=== PATIENT | female | born 1970 | race African-American/Black ===

== ENCOUNTER 2019-02-20 09:30 | Emergency (ER) | payer SELFPAY ==
[2019-02-20] MEDS ORDERED: Morphine 4 MG/ML VIAL ONE (09:41)
[2019-02-20] MEDS ORDERED: Ondansetron PF 4 MG/2 ML Vial ONE (09:41)
[2019-02-20 10:13] LABS: Hemoglobin 11.4 g/dL (12.0-16.0); Mean Corpuscular HGB CONC 31.6 g/dL (32.0-36.0); Mean Corpuscular Hemoglobin 28.1 pg (27.0-31.0); Mean Corpuscular Volume 89.1 fL (78.0-98.0); Mean Platelet Volume 8.1 fL (7.4-10.4); Platelet Count 383 thou/uL (130-400); RBC Distribution Width 14.3 % (11.5-14.5); Red Blood Cell (RBC) Count 4.07 mill/uL (4.20-5.40); White Blood Cell (WBC) Count 6.5 thou/uL (4.8-10.8)
[2019-02-20 10:17] LABS: BHCG - Serum Negative (NEGATIVE); Pregs Control Background? CLEAR/WHITE (CLR/WHITE); Pregs Control Bar Appear? YES (CONTROL BAR)
[2019-02-20 10:31] LABS: ALT (SGPT) 10 U/L (8-55); AST (SGOT) 15 U/L (5-34); Albumin 3.9 g/dL (3.5-5.0); Alkaline Phosphatase 52 U/L (40-150); Anion Gap 12 mmol/L (10-20); BUN (Urea Nitrogen) 6 mg/dL (7.0-18.7); Bilirubin, Total 0.3 mg/dL (0.2-1.2); CK (CPK) 78 U/L (29-168); Calc. Creatinine Clearance 0 mL/min (70-130); Calcium 9.5 mg/dL (7.8-10.44); Carbon Dioxide 21 mmol/L (22-29); Chloride 107 mmol/L (98-107); Estimated GFR-MDRD Greater than 90; Globulin 3.4 g/dL (2.4-3.5); Glucose 95 mg/dL (70-105); Lipase 6 U/L (8-78); Protein, Total 7.3 g/dL (6.0-8.3); Sodium 136 mmol/L (136-145)
[2019-02-20 10:44] LABS: Band 1 % (5-11); Eosinophils 8 % (0-10); Lymphocytes 61 % (21-51); MDiff Complete? YES; Monocytes 7 % (0-10); Neutrophil 23 % (42-75); Polychromasia SLIGHT = 2-3 cells (100X) (0-2/hpf)
--- NOTE | 2019-02-20 11:14 | CT ---
CT HEAD WITHOUT CONTRAST: Date: 02/20/19 Multiple axial tomograms obtained through the head without IV enhancement. INDICATION: Fall. COMPARISON: 01/08/08. FINDINGS: Ventricles have normal size and position. No evidence of intracranial hemorrhage or mass. Sinuses farheen w mild mucosal edema in the ethmoids. Sinuses are aerated. IMPRESSION: No acute process identified. POS: [facility]
--- NOTE | 2019-02-20 11:25 | RAD ---
AP CHEST: Date: 02/20/19 HISTORY: Fall. COMPARISON: 06/05/12. FINDINGS: Lungs appear clear. Deformity of the left lateral chest wall from old rib fractures appears stable fr om prior exam. The heart and mediastinum are unremarkable. IMPRESSION: Deformity of the left chest from old injury. No acute process identified. POS: [facility]
[2019-02-20 11:55] LABS: Bilirubin Negative (Negative); Blood, Urine Negative (Negative); Clarity Turbid (Clear); Glucose, Urine (Dipstick) Normal (Negative); Leukocyte 500 Leu/uL (Negative); Nitrite Negative (Negative); Protein, Urine (Dipstick) Negative (Neg-Trace); Urobilinogen Normal mg/dL (Less than 2)
--- NOTE | 2019-02-20 11:57 | RAD ---
LEFT HIP 3 VIEWS: Date: 02/20/19 INDICATION: History of mechanical fall out of bed, left hip pain. FINDINGS: There is a healed comminuted fracture involving the left obturator ring. There is a healed instrument ed proximal left femur fracture. There is a radiopaque density seen within the colon which may be rel ated to ingested bismuth products. No acute fracture or subluxation is evident. IMPRESSION: 1. Healed post-traumatic changes of the pelvis and proximal left femur. 2. No definite acute osseous abnormality. POS: [facility]
[2019-02-20 12:01] LABS: Medtox Reader # READER 4
--- NOTE | 2019-02-20 12:01 | RAD ---
LEFT FEMUR 2 VIEWS: Date: 02/20/19 INDICATION: Fall out of bed with left leg pain. COMPARISON: None. FINDINGS: There is a healed instrumented left proximal femur fracture. No acute fracture is evident. There is h ealed fracture deformity involving the left obturator ring. IMPRESSION: No acute osseous abnormality. POS: [facility]
--- NOTE | 2019-02-20 12:01 | RAD ---
LEFT ELBOW 4 VIEWS: Date: 02/20/19 INDICATION: Mechanical fall with left elbow pain. COMPARISON: None. IMPRESSION: No acute fracture or subluxation is evident. No joint capsular distention is noted. POS: [facility]
[2019-02-20 12:02] LABS: Amphetamine Not Detected (NotDetected); Barbiturates Screen Not Detected (NotDetected); Benzodiazepine Screen Not Detected (NotDetected); Cocaine Metabolite Screen Not Detected (NotDetected); Medtox Control Line Valid? VALID (VALID); Methadone Not Detected (NotDetected); Methamphetamine Not Detected (NotDetected); Opiate Screen Detected (NotDetected); Oxycodone Screen Not Detected (NotDetected); Phencyclidine (PCP) Not Detected (NotDetected); THC/Cannabinoid Screen Detected (NotDetected); Tricyclic Screen Not Detected (NotDetected)
[2019-02-20 12:03] LABS: Bacteria/HPF 1+ HPF (None Seen); RBC/HPF 0-3 HPF (0-3); Squamous Epithelial Greater than 50 HPF (0-3); Trichomonas/HPF 1+ HPF (None Seen)
--- NOTE | 2019-02-20 12:03 | RAD ---
LEFT SHOULDER 3 VIEWS: Date: 02/20/19 INDICATION: Mechanical fall out of bed with left shoulder pain. COMPARISON: None. FINDINGS: There is a healed fracture deformity involving the distal clavicle. No acute fracature or subluxation is grossly evident. There are numerous healed left-sided rib fractures. Visualized left lung is ann r. IMPRESSION: No acute osseous abnormality. POS: [facility]
[2019-02-20] MEDS ORDERED: levETIRAcetam 500 MG/100 ML PREMIX BAG ONE (12:22)
--- NOTE | 2019-02-20 13:02 | CT ---
CHEST AND ABDOMEN AND PELVIC CT SCAN WITH IV CONTRAST THORACIC SPINE CT SCAN WITH IV CONTRAST LIMITED LUMBAR SPINE CT SCAN WITH IV CONTRAST LIMITED: HISTORY: Injury following a mechanical fall out of bed with left arm and shoulder pain, seizures. FINDINGS: CHEST, ABDOMEN, AND PELVIC CT SCAN WITH IV CONTRAST: There is some increased thymus tissue within the anterior mediastinum extending from the region of th e manubrium of the sternum down to the level of the right ventricle. Comparison is made to a prior C T angiogram chest dated 01/08/2008. This thymus tissue may be slightly more prominent than on that st udy, although given that was 11 years ago this has probably not significantly changed. The aorta and great vessels appear unremarkable. No evidence for acute vascular injury. Numerous healed rib frac tures are noted on the left side. No pneumothorax or pleural effusion or pericardial effusion or oth er significant acute posttraumatic process. The liver, gallbladder, pancreas, and adrenal glands appear unremarkable. There appears to be prior splenectomy. No renal calculus or acute obstruction. No CT evidence for acute appendicitis. No free intraperitoneal fluid or evidence for retroperitoneal hematoma. Multiple intrauterine fibroids up to 2.6 cm in size. A 1.7 cm diameter slightly irregularly shaped cyst or confined fluid collectio n in the right labia, possibly a Bartholin's cyst. IMPRESSION: No significant acute posttraumatic process in the chest, abdomen, or pelvis. Abnormal increased thym ic tissue within the anterior mediastinum probably representing a thymoma with little overall change, possibly very slight increase in size from a prior 2007 study. Status post splenectomy. Multiple u terine fibroids. Right labial probable Bartholin's cyst. THORACIC CT SCAN WITH IV CONTRAST LIMITED: IMPRESSION: No fracture, dislocation, or other acute process. LUMBAR SPINE CT SCAN WITH IV CONTRAST LIMITED: No fracture, dislocation, or other significant acute process. POS: [facility]
--- NOTE | 2019-02-20 13:07 | CT ---
CERVICAL SPINE CT SCAN WITHOUT IV CONTRAST: Date: 02/20/19 HISTORY: Injury from a mechanical fall, seizures. FINDINGS: There are some generalized cervical spine disc osteophytosis and some facet arthrosis. No evidence fo r acute fracture or facet dislocation. There are some healed left rib fractures and probable healed r ight first rib fracture. IMPRESSION: No evidence for acute fracture or facet dislocation. Cervical spondylosis. POS: [facility]
--- NOTE | 2019-02-22 13:23 | EKG ---
Test Reason : SEIZURE Blood Pressure : / mmHG Vent. Rate : 055 BPM Atrial Rate : 055 BPM P-R Int : 236 ms QRS Dur : 078 ms QT Int : 440 ms P-R-T Axes : 044 036 041 degrees QTc Int : 420 ms Sinus bradycardia with 1st degree A-V block Otherwise normal ECG Confirmed by ENRIQUETA Weston, MISA ([id number]), non linear editor BRADLEY HILLMAN ([id number]) on 02/22/2019 1:23:24 PM Referred By: ENRIQUETA Confirmed By:MISA ROBISON M.D.
== END 2019-02-20 15:37 | disposition home or self-care (01) ==
LOC: ERS 09:30
DX: S22.32XA Fracture of one rib, left side, initial encounter for closed fracture (principal); E32.0 Persistent hyperplasia of thymus; D25.9 Leiomyoma of uterus, unspecified; R56.9 Unspecified convulsions; W06.XXXA Fall from bed, initial encounter
CPT/HCPCS: 36415; 70450; 71045; 71260; 72125; 74177; 80053; 80306; 81003; 81015; 82550; 83690; 84146; 84484; 84703; 85025; 93005; 96361; 96365; 96375; J1953; J2270; J2405

== ENCOUNTER 2019-12-22 08:46 | Outpatient (CLI) | payer OTHER ==
--- NOTE | 2019-12-22 08:59 | RAD ---
RADIOGRAPH LEFT LEG TIBIA FIBULA 2VIEWS: DATE: 12/22/2019 HISTORY: 49-year-old female with left leg pain FINDINGS: There is no evidence of fracture, periostitis, permeative lesion, osteolytic lesion, or osteoblastic lesion involving the tibia or fibula. No radiopaque foreign body, abnormal soft tissue calcification, or subcutaneous emphysema is identified. IMPRESSION: Negative
== END 2019-12-22 08:47 | disposition home or self-care (01) ==
LOC: RAD-FRANK 08:46
PROVIDERS: ATTEND Nurse Practitioner Family
DX: M79.605 Pain in left leg (principal)

== ENCOUNTER 2020-09-19 09:01 | Emergency (ER) | payer OTHER ==
[2020-09-19] MEDS ORDERED: Lidocaine Viscous Sol 2% 15 ml UD Cup ONE (09:39)
[2020-09-19] MEDS ORDERED: Lorazepam 2 MG/ML VIAL ONE (09:39)
[2020-09-19] MEDS ORDERED: Mag-Al 1200 mg/1200 mg/30 ML UDCUP ONE (09:39)
[2020-09-19 09:40] LABS: Hemoglobin 11.4 g/dL (12.0-16.0); Mean Corpuscular HGB CONC 32.5 g/dL (32.0-36.0); Mean Corpuscular Volume 86.4 fL (78.0-98.0); RBC Distribution Width 14.2 % (11.5-14.5); Red Blood Cell (RBC) Count 4.08 mill/uL (4.20-5.40)
--- NOTE | 2020-09-19 09:41 | RAD ---
XR Chest 1 View Portable HISTORY: Chest pain COMPARISON: 02/20/2019 FINDINGS: The heart size is normal. The lungs are well expanded without focal areas of consolidation, pneumothorax or pleural effusions. IMPRESSION: No radiographic evidence of acute cardiopulmonary process.
[2020-09-19 09:42] LABS: BHCG - Serum Negative (NEGATIVE); Pregs Control Bar Appear? YES (CONTROL BAR)
[2020-09-19 09:43] LABS: Pregs Control Background? CLEAR/WHITE (CLR/WHITE)
[2020-09-19 09:50] LABS: ALT (SGPT) 12 U/L (8-55); AST (SGOT) 16 U/L (5-34); Albumin 4.1 g/dL (3.5-5.0); Alkaline Phosphatase 63 U/L (40-110); Anion Gap 16 mmol/L (10-20); BUN (Urea Nitrogen) 7 mg/dL (7.0-18.7); Bilirubin, Total 0.3 mg/dL (0.2-1.2); CK (CPK) 120 U/L (29-168); Calc. Creatinine Clearance 0 mL/min (70-130); Calcium 9.5 mg/dL (7.8-10.44); Carbon Dioxide 15 mmol/L (22-29); Chloride 108 mmol/L (98-107); Globulin 4.2 g/dL (2.4-3.5); Glucose 93 mg/dL (70-105); Lipase 9 U/L (8-78); Potassium 4.1 mmol/L (3.5-5.1); Protein, Total 8.3 g/dL (6.0-8.3); Sodium 135 mmol/L (136-145)
[2020-09-19 09:56] LABS: Burr Cells SLIGHT = 2-5 cells (100X) (0-1/hpf); Hypersemented Neutrophil SLIGHT; Hypochromia SLIGHT = 6-15 cells (100X) (0-5/hpf); Large Platelets SLIGHT; Lymphocytes 44 % (21-51); MDiff Complete? YES; Mean Platelet Volume 7.7 fL (7.4-10.4); Monocytes 8 % (0-10); Neutrophil 41 % (42-75); Platelet Count 415 thou/uL (130-400); Platelet Morphology Comment Appears Increased; Reactive Lymphocytes 6 % (0-10); Target Cells SLIGHT = 2-5 cells (100X) (0-1/hpf); White Blood Cell (WBC) Count 9.7 thou/uL (4.8-10.8)
--- NOTE | 2020-09-19 12:34 | CT ---
CTA AORTIC DISSECTION PROTOCOL WITH IV CONTRAST AND 3D REFORMATTED IMAGING: Date: 09/19/2020 INDICATION: 50-year-old female with history of chest and abdominal pain with burning sensations travelling to the abdomen. COMPARISON: CT of chest/abdomen/pelvis dated 02/20/2019 and CTA of chest dated 01/08/2008. FINDINGS: No definite acute aortic stenosis, occlusion, or aneurysmal formation is evident. The celiac, SMA, re nal, COREY, and iliac bifurcations are widely patent. No central pulmonary embolus is evident. No suspicious pulmonary nodule is evident. There is stable healed rib deformity involving the left ch est wall. There is an enlarging soft tissue mass involving the anterior mediastinum measuring 3.7 x 3.3 x 9.2 c m extending from the thoracic inlet along the anterior and superior margin of the pericardium. There is no overt evidence to suggest local invasion. Findings are suspicious for an enlarging thymoma. The spleen is surgically absent. No definite acute abnormality is seen within the visualized abdomen. Unopacified large and small bowel appear within normal limits. No focal hepatic lesion is evident. T he pancreas and adrenal glands are normal appearing. The kidneys are normal appearing. No pathologica lly enlarged lymph nodes are evident. There is scattered degenerative and osteoarthritic change. IMPRESSION: 1. No acute aortic dissection, aneurysm or occlusion. 2. Enlarging anterior mediastinal soft tissue mass suspicious for an enlarging thymoma. POS:
== END 2020-09-19 13:30 | disposition home or self-care (01) ==
LOC: ERS 09:01
DX: R07.9 Chest pain, unspecified (principal); D49.89 Neoplasm of unspecified behavior of other specified sites
CPT/HCPCS: 36415; 71045; 71275; 74174; 80053; 82550; 83690; 84484; 84703; 85025; 93005; 96374; J2060

== ENCOUNTER 2020-10-07 10:30 | Inpatient (IN) | payer OTHER ==
[2020-10-07 12:04] LABS: Hemoglobin 10.8 g/dL (12.0-15.5); Mean Corpuscular HGB CONC 32.3 g/dL (32.0-36.0); Mean Corpuscular Hemoglobin 27.1 pg (27.0-33.0); Mean Corpuscular Volume 83.9 fl (81.6-98.3); Mean Platelet Volume 11.7 fl (7.4-10.4); Platelet Count 373 10x3/uL (150-450); RBC Distribution Width 15.6 % (11.5-14.5); Red Blood Cell (RBC) Count 3.98 10x6/uL (3.90-5.03); White Blood Cell (WBC) Count 8.4 10x3/uL (3.5-10.5)
[2020-10-07 12:20] LABS: Anion Gap 17 mmol/L (10-20); BUN (Urea Nitrogen) 12 mg/dL (7.0-18.7); Calc. Creatinine Clearance 0 mL/min (70-130); Calcium 9.3 mg/dL (7.8-10.44); Carbon Dioxide 19 mmol/L (22-29); Chloride 106 mmol/L (98-107); Glucose 74 mg/dL (70-105); Potassium 4.8 mmol/L (3.5-5.1); Sodium 137 mmol/L (136-145)
[2020-10-07 17:26] LABS: SARS-CoV-2 PCR by NAA Not Detected (NotDetected)
[2020-10-12] MEDS ORDERED: Lidocaine 1% PF 5 ML VIAL ONE (10:15)
[2020-10-12] MEDS ORDERED: Ondansetron PF 4 MG/2 ML Vial ONE (10:15)
[2020-10-12] MEDS ORDERED: Rocuronium Bromide 10 MG/ML (10ML VIAL) ONE (10:15)
[2020-10-12] MEDS ORDERED: PROPOFOL 200 MG/20 ML VIAL ONE (10:15)
[2020-10-12] MEDS ORDERED: Dexamethasone 20 MG/5 ML VIAL ONE (10:15)
[2020-10-12] MEDS ORDERED: Glycopyrrolate 0.2 MG/ML 5 ML SYRINGE ONE (10:15)
[2020-10-12] MEDS ORDERED: Dexamethasone 4 mg/ml Vial ONE (12:44)
[2020-10-12] MEDS ORDERED: EPINEPHrine 1 MG/ML AMP ONE (12:44)
[2020-10-12] MEDS ORDERED: Bupivacaine PF 0.5% 30 ML VIAL ONE (12:44)
[2020-10-12] MEDS ORDERED: Fentanyl 100 MCG/2 ML VIAL ONE ×4 (12:48→16:07)
[2020-10-12] MEDS ORDERED: Midazolam HCl 2 mg/2 ml Vial ONE (12:48)
[2020-10-12] MEDS ORDERED: Acetaminophen 325 MG TAB PO PRN (14:32)
[2020-10-12] MEDS ORDERED: Bisacodyl 10 MG SUPP PR PRN (14:32)
[2020-10-12] MEDS ORDERED: Bisacodyl 5 MG TAB PO PRN (14:32)
[2020-10-12] MEDS ORDERED: D5 1/2 NS w/20 mEq KCL 1,000 ML IV SCH (14:32)
[2020-10-12] MEDS ORDERED: Mag-Al 1200 mg/1200 mg/30 ML UDCUP PO PRN (14:32)
[2020-10-12] MEDS ORDERED: Fentanyl 100 MCG/2 ML VIAL SLOW IVP PRN (14:32)
[2020-10-12] MEDS ORDERED: Guaifenesin DM 100-10/5 ML UDCUP PO PRN (14:32)
--- NOTE | 2020-10-12 14:50 | OP ---
DATE OF PROCEDURE: 10/11/2020 PREOPERATIVE DIAGNOSIS: Thymic mass. POSTOPERATIVE DIAGNOSIS: Thymic mass. PROCEDURE PERFORMED: Mini-sternotomy with thymectomy. ANESTHESIA: General endotracheal. ESTIMATED BLOOD LOSS: Less than 100. DRAIN: A 10-Mal[place] Kali. SPECIMEN: Thymus. DESCRIPTION OF PROCEDURE: After consent was obtained, the patient was brought to the operating room and placed in supine position on the operating room table. Appropriate central line and monitors were placed and general endotracheal anesthesia was induced. Chest was prepped and draped in usual sterile fashion. Skin incision was made. The manubrium and sternum down to the first interspace were dissected free from surrounding tissues. Fer-sternotomy was performed and teed off to the right at the first interspace past the angle of Desmond. On spreading the sternum, there was an easily identifiable thymic mass. The thymus was removed in total from the mediastinum. Both electrocautery and sharp dissection were used to dissect it free. Multiple venous and lymphatic branches were clipped. After removal, hemostasis was ensured. Vancomycin paste was placed on the sternal edges. A 10-Mal[place] Kali drain was placed and connected to a bulb suction. The sternum was then reapproximated with #5 wire. Wounds were irrigated, closed in layers and Dermabond applied to skin. The patient was awakened, extubated, and transferred to the recovery room in stable condition. The thymic mass was sent for routine pathologic exam. Job ID: [id number]
[2020-10-12] MEDS ORDERED: HYDROmorphone 2 MG/ML VIAL ONE (15:31)
[2020-10-12] MEDS ORDERED: hydrALAZINE 20 MG/ML VIAL ONE (15:35)
--- NOTE | 2020-10-12 15:55 | RAD ---
Exam: Chest one view HISTORY:Status post open heart surgery Comparison: 09/19/2019 FINDINGS: Cardiac silhouette:Normal cardiac silhouette. There are sternotomy wires. Aorta: Unremarkable Pulmonary vessels: Normal Costophrenic angles: Clear LUNGS: Interstitial and alveolar opacities may represent atelectasis Pneumothorax: None Osseous abnormalities: Old right rib fracture IMPRESSION: Compatible with recent open heart surgery
[2020-10-12] MEDS ORDERED: hydrALAZINE 20 MG/ML VIAL SLOW IVP SCH (16:00)
[2020-10-12] MEDS: HYDROcodone/Acetaminophen 5/325 mg Tablet PO PRN (17:35)
[2020-10-12] MEDS ORDERED: Ketorolac Tromethamine 30 MG/ML VIAL IVP SCH (18:00)
[2020-10-12] MEDS: Fentanyl 100 MCG/2 ML VIAL SLOW IVP PRN ×2 (18:27→20:30)
[2020-10-12] MEDS: Ondansetron PF 4 MG/2 ML Vial IVP PRN (18:28)
[2020-10-12] MEDS: CEFAZOLIN 2 GM in Premix Bag 1 BAG IVPB SCH (20:50)
[2020-10-12] MEDS ORDERED: Famotidine/PF 20 mg/2ml Vial SLOW IVP SCH (21:00)
[2020-10-13] MEDS: CEFAZOLIN 2 GM in Premix Bag 1 BAG IVPB SCH ×2 (04:00→12:32)
[2020-10-13] MEDS: Fentanyl 100 MCG/2 ML VIAL SLOW IVP PRN (04:30)
[2020-10-13 05:28] LABS: #Lymphocytes 2.6 thou/uL (1.20-3.40); #Monocytes 0.6 thou/uL (0.11-0.59); #Neutrophils 8.3 thou/uL (1.40-6.50); %Eosinophils 0.1 % (0.0-10.0); %Lymphocytes 22.2 % (21.0-51.0); %Monocytes 5.3 % (0.0-10.0); %Neutrophils 72.3 % (42.0-75.0); Mean Corpuscular HGB CONC 31.6 g/dL (32.0-36.0); Mean Corpuscular Hemoglobin 28.2 pg (27.0-31.0); Mean Corpuscular Volume 89.5 fL (78.0-98.0); Mean Platelet Volume 7.9 fL (7.4-10.4); Platelet Count 463 thou/uL (130-400); RBC Distribution Width 14.2 % (11.5-14.5); White Blood Cell (WBC) Count 11.5 thou/uL (4.8-10.8)
[2020-10-13] MEDS: HYDROcodone/Acetaminophen 5/325 mg Tablet PO PRN ×4 (05:36→18:56)
[2020-10-13 06:30] VITALS: BMI 26.0
--- NOTE | 2020-10-13 08:03 | RAD ---
Chest AP view INDICATION: Chest pain; chest crepitus status post thymectomy COMPARISON: October 12, 2020 chest radiograph FINDINGS: Lungs: Scarring involving the left midlung is stable. No confluent airspace opacity is evident. Cardiac silhouette: Midline sternotomy changes are stable. Heart shadow appears within normal limits . Pulmonary vasculature: Normal Pleural spaces: No pleural effusion or pneumothorax is demonstrated. Upper abdomen: No abnormality seen. Osseous structures: Deformity involving the left lateral chest wall is stable. Deformity involving t he distal left clavicle is stable. Additional findings: None. IMPRESSION: Stable postoperative chest. No definite acute abnormality.
[2020-10-13 08:15] LABS: MDiff Complete? YES; Platelet Morphology Comment Appears Increased; Polychromasia SLIGHT = 2-3 cells (100X) (0-2/hpf)
[2020-10-14] MEDS: Fentanyl 100 MCG/2 ML VIAL SLOW IVP PRN ×2 (00:46→03:52)
[2020-10-14] MEDS: Ondansetron PF 4 MG/2 ML Vial IVP PRN (03:52)
[2020-10-14] MEDS: HYDROcodone/Acetaminophen 5/325 mg Tablet PO PRN ×5 (03:54→16:26)
[2020-10-14 18:58] VITALS: BP 143/87; TEMP 98.9
--- NOTE | 2020-10-15 10:00 | DIS ---
DATE OF ADMISSION: 10/12/2020 DATE OF DISCHARGE: 10/14/2020 DIAGNOSIS: Thymic mass. PROCEDURE: Hemisternotomy with resection of thymic mass. DESCRIPTION OF HOSPITAL STAY: Ms. Mosquera was brought in for an elective resection. She has done well postoperatively and had no issues. Her drain was removed this morning. She is currently ambulatory, tolerating a regular diet, having good bowel and bladder function. Incision is clean and dry. The hole from her drain has drained a little bit of clear fluid and she has been instructed to keep a dry dressing on this. I will see her back in the office in a week and discuss her pathology, which is currently still pending. DISCHARGE MEDICATIONS: Hydrocodone 5 mg one to two q.6 hours p.r.n. pain. Job ID: [id number]
== END 2020-10-14 17:50 | disposition home or self-care (01) | DRG 804 ==
LOC: SURG A 10-12 09:22 → 2NO 10-12 16:21
PROVIDERS: ADMIT Thoracic Surgery (Cardiothoracic Vascular Surgery); ATTEND Thoracic Surgery (Cardiothoracic Vascular Surgery)
PROC: 07BM0ZZ Excision of Thymus, Open Approach (ICD-10-PCS; principal; 2020-10-11)
DX: E32.8 Other diseases of thymus (principal); Z20.822 Contact with and (suspected) exposure to COVID-19; Z88.6 Allergy status to analgesic agent; Z88.8 Allergy status to other drugs, medicaments and biological substances
CPT/HCPCS: 36415; 36416; 71045; 80048; 85025; 85027; 86850; 86900; 86901; 87635; 88307; J0171; J0360; J0690; J1100; J1170; J2250; J2405; J2704; J3010; J3370; J3480; S0020; S0028; U0003; U0005

== ENCOUNTER 2021-03-26 08:00 | Emergency (ER) | payer OTHER ==
[2021-03-26] MEDS ORDERED: Morphine 4 MG/ML VIAL ONE (08:43)
[2021-03-26] MEDS ORDERED: Ketorolac Tromethamine 30 MG/ML VIAL ONE (08:44)
[2021-03-26 08:56] LABS: ALT (SGPT) 16 U/L (8-55); AST (SGOT) 19 U/L (5-34); Alkaline Phosphatase 75 U/L (40-110); Anion Gap 14 mmol/L (10-20); BUN (Urea Nitrogen) 9 mg/dL (7.0-18.7); Bilirubin, Total 0.2 mg/dL (0.2-1.2); Calc. Creatinine Clearance 0 mL/min (70-130); Carbon Dioxide 20 mmol/L (22-29); Chloride 108 mmol/L (98-107); Globulin 3.7 g/dL (2.4-3.5); Glucose 96 mg/dL (70-105); Potassium 3.9 mmol/L (3.5-5.1); Protein, Total 7.7 g/dL (6.0-8.3); Sodium 138 mmol/L (136-145)
[2021-03-26 09:51] LABS: Anisocytosis SLIGHT = 6-15 cells (100X) (0-5/hpf); Band 1 % (5-11); Crenated RBC SLIGHT = 1-5 cells (100X) (None Seen); Eosinophils 2 % (0-10); Hemoglobin 10.4 g/dL (12.0-16.0); Lymphocytes 60 % (21-51); MDiff Complete? YES; Mean Corpuscular HGB CONC 32.9 g/dL (32.0-36.0); Mean Corpuscular Hemoglobin 27.5 pg (27.0-31.0); Mean Corpuscular Volume 83.8 fL (78.0-98.0); Mean Platelet Volume 8.6 fL (7.4-10.4); Monocytes 5 % (0-10); Neutrophil 32 % (42-75); Platelet Count 502 thou/uL (130-400); Platelet Morphology Comment Appears Increased; Poikilocytosis SLIGHT = 6-15 cells (100X) (0-5/hpf); RBC Distribution Width 16.1 % (11.5-14.5); Red Blood Cell (RBC) Count 3.78 mill/uL (4.20-5.40); Target Cells SLIGHT = 2-5 cells (100X) (0-1/hpf); White Blood Cell (WBC) Count 5.8 thou/uL (4.8-10.8)
[2021-03-26] MEDS ORDERED: Iopamidol-370 76% 500 ML 1 ML ONE (10:52)
== END 2021-03-26 13:25 | disposition home or self-care (01) ==
LOC: ERS 08:00
DX: S22.31XA Fracture of one rib, right side, initial encounter for closed fracture (principal); X58.XXXA Exposure to other specified factors, initial encounter
CPT/HCPCS: 36415; 71045; 71275; 80053; 84484; 85025; 85379; 96374; 96375; J1885; J2270; Q9967

== ENCOUNTER 2021-06-24 16:54 | Emergency (ER) | payer OTHER ==
[2021-06-24] MEDS ORDERED: HYDROcodone/Acetaminophen 5/325 mg Tablet ONE (17:44)
== END 2021-06-24 18:00 | disposition home or self-care (01) ==
LOC: ERS 16:54
DX: M25.531 Pain in right wrist (principal)

== ENCOUNTER 2022-02-01 08:02 | Emergency (ER) | payer OTHER ==
[~2022-02-01 08:02] MED LIST: ISOVUE-370 76%-LOCM 1 ML ONE
[2022-02-01 09:35] LABS: ALT (SGPT) 9 U/L (8-55); AST (SGOT) 20 U/L (5-34); Albumin 4.1 g/dL (3.5-5.0); Alkaline Phosphatase 62 U/L (40-110); Anion Gap 13 mmol/L (10-20); BUN (Urea Nitrogen) 4 mg/dL (7.0-18.7); Bilirubin, Total 0.2 mg/dL (0.2-1.2); Calc. Creatinine Clearance 0 mL/min (70-130); Calcium 9.6 mg/dL (7.8-10.44); Carbon Dioxide 24 mmol/L (22-29); Chloride 102 mmol/L (98-107); Glucose 100 mg/dL (70-105); Potassium 4.1 mmol/L (3.5-5.1); Protein, Total 8.1 g/dL (6.0-8.3); Sodium 135 mmol/L (136-145)
[2022-02-01 09:40] LABS: Hemoglobin 11.2 g/dL (12.0-16.0); Mean Corpuscular HGB CONC 32.2 g/dL (32.0-36.0); Mean Corpuscular Hemoglobin 27.6 pg (27.0-31.0); Mean Corpuscular Volume 85.9 fL (78.0-98.0); Mean Platelet Volume 8.3 fL (7.4-10.4); Platelet Count 386 thou/uL (130-400); RBC Distribution Width 14.9 % (11.5-14.5); Red Blood Cell (RBC) Count 4.07 mill/uL (4.20-5.40); White Blood Cell (WBC) Count 8.6 thou/uL (4.8-10.8)
[2022-02-01 10:08] LABS: Band 15 % (5-11); Eosinophils 2 % (0-10); Lymphocytes 17 % (21-51); MDiff Complete? YES; Monocytes 8 % (0-10); Neutrophil 57 % (42-75); Platelet Morphology Comment Appears Adequate; RBC Morphology Normal
[2022-02-01] MEDS ORDERED: Morphine 4 MG/ML VIAL ONE (11:43)
[2022-02-01] MEDS ORDERED: Ondansetron PF 4 MG/2 ML Vial ONE (11:43)
[2022-02-01 12:11] LABS: Troponin I Less than 0.010 ng/mL (< 0.028)
== END 2022-02-01 15:13 | disposition home or self-care (01) ==
LOC: ERS 08:02
DX: R07.9 Chest pain, unspecified (principal)
CPT/HCPCS: 36415; 71046; 71275; 80053; 84484; 85025; 93005; 96374; 96375; J2270; J2405; Q9966

== ENCOUNTER 2022-02-24 11:20 | Emergency (ER) | payer OTHER ==
[2022-02-24] MEDS ORDERED: Ondansetron ODT 4 MG TAB ONE (12:11)
[2022-02-24] MEDS ORDERED: Ketorolac Tromethamine 30 MG/ML VIAL ONE (12:11)
[2022-02-24] MEDS ORDERED: Acetaminophen 500 MG TAB ONE (12:11)
[2022-02-24 12:20] LABS: Mean Corpuscular HGB CONC 32.3 g/dL (32.0-36.0); Mean Corpuscular Hemoglobin 27.7 pg (27.0-31.0); Mean Corpuscular Volume 85.9 fL (78.0-98.0); Platelet Count 450 thou/uL (130-400); RBC Distribution Width 15.2 % (11.5-14.5); Red Blood Cell (RBC) Count 3.96 mill/uL (4.20-5.40); White Blood Cell (WBC) Count 8.3 thou/uL (4.8-10.8)
[2022-02-24 12:22] LABS: ALT (SGPT) 8 U/L (8-55); AST (SGOT) 14 U/L (5-34); Albumin 3.9 g/dL (3.5-5.0); Alkaline Phosphatase 55 U/L (40-110); Anion Gap 15 mmol/L (10-20); BUN (Urea Nitrogen) 5 mg/dL (7.0-18.7); Bilirubin, Total 0.4 mg/dL (0.2-1.2); CK (CPK) 96 U/L (29-168); Calc. Creatinine Clearance 0 mL/min (70-130); Calcium 9.4 mg/dL (7.8-10.44); Carbon Dioxide 22 mmol/L (22-29); Chloride 106 mmol/L (98-107); Estimated GFR 99; Globulin 3.7 g/dL (2.4-3.5); Glucose 93 mg/dL (70-105); Potassium 3.6 mmol/L (3.5-5.1); Protein, Total 7.6 g/dL (6.0-8.3); Sodium 139 mmol/L (136-145)
[2022-02-24 12:35] LABS: Lymphocytes 26 % (21-51); MDiff Complete? YES; Monocytes 9 % (0-10); Neutrophil 65 % (42-75); Platelet Morphology Comment Appears Increased
[2022-02-24 12:48] LABS: BHCG - Serum Negative (NEGATIVE); Pregs Control Background? CLEAR/WHITE (CLR/WHITE); Pregs Control Bar Appear? YES (CONTROL BAR)
[2022-02-24 13:37] LABS: Bacteria/HPF None Seen HPF (None Seen); Bilirubin Negative (Negative); Blood, Urine Negative (Negative); Clarity Clear (Clear); Glucose, Urine (Dipstick) Normal (Negative); Ketone, Urine Negative (Negative); Leukocyte Negative Leu/uL (Negative); Nitrite Negative (Negative); Protein, Urine (Dipstick) 30 mg/dL (Neg-Trace); RBC/HPF 0-3 HPF (0-3); Specific Gravity, Urine 1.027 (1.002-1.036); Urobilinogen Normal mg/dL (Less than 2); WBC/HPF 0-3 HPF (0-3); pH, Urine 7.5 (5.0-9.0)
[2022-02-24 14:07] LABS: SARS-CoV-2 NAA Rapid Test DETECTED (NotDetected)
== END 2022-02-24 14:32 | disposition home or self-care (01) ==
LOC: ERS 11:20
DX: U07.1 COVID-19 (principal); I44.0 Atrioventricular block, first degree
CPT/HCPCS: 36415; 71045; 80053; 81003; 81015; 82550; 84703; 85025; 93005; 96372; J1885; Q0162

== ENCOUNTER 2022-02-26 08:12 | Emergency (ER) | payer OTHER ==
[2022-02-26] MEDS ORDERED: Ketorolac Tromethamine 30 MG/ML VIAL ONE (08:39)
[2022-02-26 09:12] LABS: Hemoglobin 10.5 g/dL (12.0-16.0); Mean Corpuscular HGB CONC 30.6 g/dL (32.0-36.0); Mean Corpuscular Hemoglobin 26.8 pg (27.0-31.0); Mean Corpuscular Volume 87.6 fL (78.0-98.0); Mean Platelet Volume 8.2 fL (7.4-10.4); Platelet Count 421 thou/uL (130-400); RBC Distribution Width 15.2 % (11.5-14.5); Red Blood Cell (RBC) Count 3.93 mill/uL (4.20-5.40); White Blood Cell (WBC) Count 6.7 thou/uL (4.8-10.8)
[2022-02-26 09:24] LABS: ALT (SGPT) 9 U/L (8-55); AST (SGOT) 14 U/L (5-34); Albumin 3.7 g/dL (3.5-5.0); Alkaline Phosphatase 51 U/L (40-110); Anion Gap 14 mmol/L (10-20); BUN (Urea Nitrogen) Less than 4 mg/dL (7.0-18.7); Bilirubin, Total 0.4 mg/dL (0.2-1.2); Calc. Creatinine Clearance 0 mL/min (70-130); Calcium 9.6 mg/dL (7.8-10.44); Carbon Dioxide 21 mmol/L (22-29); Chloride 108 mmol/L (98-107); Estimated GFR 109; Globulin 3.4 g/dL (2.4-3.5); Glucose 92 mg/dL (70-105); Lipase 8 U/L (8-78); Potassium 3.8 mmol/L (3.5-5.1); Protein, Total 7.1 g/dL (6.0-8.3); Sodium 139 mmol/L (136-145)
[2022-02-26 09:29] LABS: MDiff Complete? YES
[2022-02-26 09:30] LABS: Band 1 % (5-11); Eosinophils 2 % (0-10); Hypochromia SLIGHT = 6-15 cells (100X) (0-5/hpf); Lymphocytes 44 % (21-51); Monocytes 9 % (0-10); Neutrophil 37 % (42-75); Ovalocytes SLIGHT = 2-5 cells (100X) (0-1/hpf); Platelet Morphology Comment Appears Increased; Polychromasia SLIGHT = 2-3 cells (100X) (0-2/hpf); Reactive Lymphocytes 7 % (0-10); Target Cells MODERATE= 6-15 cells (100X) (0-1/hpf); Tear Drops SLIGHT = 2-5 cells (100X) (0-1/hpf)
== END 2022-02-26 10:14 | disposition home or self-care (01) ==
LOC: ERS 08:12
DX: U07.1 COVID-19 (principal); R10.13 Epigastric pain; J45.909 Unspecified asthma, uncomplicated; I10 Essential (primary) hypertension
CPT/HCPCS: 71045; 80053; 83690; 84484; 85025; 93005; 94640; 96374; J1885; J7620

== ENCOUNTER 2022-07-22 11:16 | Emergency (ER) | payer OTHER ==
[2022-07-22] MEDS ORDERED: methylPREDNISolone Sod Succ/PF 125 MG/2 ML VIAL ONE (11:55)
[2022-07-22 12:23] LABS: #Eosinphils 0.1 thou/uL (0.0-0.7); #Lymphocytes 1.4 thou/uL (1.20-3.40); #Monocytes 0.6 thou/uL (0.11-0.59); #Neutrophils 4.4 thou/uL (1.40-6.50); %Basophils 0.5 % (0.0-1.0); %Eosinophils 0.8 % (0.0-10.0); %Lymphocytes 22.1 % (21.0-51.0); %Monocytes 9.2 % (0.0-10.0); %Neutrophils 67.4 % (42.0-75.0); Hemoglobin 10.2 g/dL (12.0-16.0); Mean Corpuscular HGB CONC 33.6 g/dL (32.0-36.0); Mean Corpuscular Hemoglobin 29.1 pg (27.0-31.0); Mean Corpuscular Volume 86.7 fl (78.0-98.0); Mean Platelet Volume 8.3 fL (7.4-10.4); Platelet Count 443 10x3/uL (130-400); Red Blood Cell (RBC) Count 3.49 mill/uL (4.20-5.40); White Blood Cell (WBC) Count 6.5 10x3/uL (4.8-10.8)
[2022-07-22] MEDS ORDERED: Ketorolac Tromethamine 30 MG/ML VIAL ONE (12:35)
[2022-07-22] MEDS ORDERED: Ondansetron PF 4 MG/2 ML Vial ONE (12:35)
[2022-07-22 12:36] LABS: ALT (SGPT) 18 U/L (8-55); AST (SGOT) 26 U/L (5-34); Alkaline Phosphatase 69 U/L (40-110); Anion Gap 13 mmol/L (10-20); BUN (Urea Nitrogen) 4 mg/dL (7.0-18.7); Bilirubin, Total Less than 0.2 mg/dL (0.2-1.2); Calc. Creatinine Clearance 0 mL/min (70-130); Calcium 8.9 mg/dL (7.8-10.44); Carbon Dioxide 19 mmol/L (22-29); Chloride 107 mmol/L (98-107); Estimated GFR 106; Globulin 3.5 g/dL (2.4-3.5); Glucose 95 mg/dL (70-105); Potassium 3.5 mmol/L (3.5-5.1); Protein, Total 7.5 g/dL (6.0-8.3); Sodium 135 mmol/L (136-145)
[2022-07-22 13:01] LABS: SARS-CoV-2 NAA Rapid Test Not Detected (NotDetected)
== END 2022-07-22 14:05 | disposition home or self-care (01) ==
LOC: ERS 11:16
DX: J10.1 Influenza due to other identified influenza virus with other respiratory manifestations (principal); I10 Essential (primary) hypertension; Z20.822 Contact with and (suspected) exposure to COVID-19
CPT/HCPCS: 36415; 71045; 80053; 84484; 85025; 93005; 94640; 96374; J1885; J2405; J2930; J7620

== ENCOUNTER 2022-11-09 18:39 | Emergency (ER) | payer OTHER ==
[~2022-11-09 18:39] MED LIST changes: -ISOVUE-370 76%-LOCM 1 ML ONE; +Iopamidol-370 76% 500 ML MDV (1 ML CHARGE) ONE
[2022-11-09] MEDS ORDERED: Morphine 4 MG/ML VIAL ONE (19:03)
[2022-11-09] MEDS ORDERED: Ondansetron PF 4 MG/2 ML Vial ONE (19:03)
[2022-11-09 19:45] LABS: Hemoglobin 13.1 g/dL (12.0-16.0); Mean Corpuscular HGB CONC 32.7 g/dL (32.0-36.0); Mean Corpuscular Hemoglobin 27.6 pg (27.0-31.0); Mean Corpuscular Volume 84.3 fl (78.0-98.0); Mean Platelet Volume 8.7 fL (7.4-10.4); Platelet Count 508 10x3/uL (130-400); Red Blood Cell (RBC) Count 4.73 mill/uL (4.20-5.40); White Blood Cell (WBC) Count 14.6 10x3/uL (4.8-10.8)
[2022-11-09 20:01] LABS: Burr Cells SLIGHT = 2-5 cells (100X) (0-1/hpf); Eosinophils 1 % (0-10); Lymphocytes 13 % (21-51); MDiff Complete? YES; Monocytes 2 % (0-10); Neutrophil 83 % (42-75); Platelet Morphology Comment Appears Increased; Reactive Lymphocytes 1 % (0-10); Target Cells SLIGHT = 2-5 cells (100X) (0-1/hpf)
[2022-11-09] MEDS ORDERED: LORazepam 2 MG/ML SYR.(CARPUJECT) ONE (20:18)
[2022-11-09 20:23] LABS: ALT (SGPT) 19 U/L (8-55); AST (SGOT) 24 U/L (5-34); Alkaline Phosphatase 80 U/L (40-110); Anion Gap 19 mmol/L (10-20); BUN (Urea Nitrogen) 11 mg/dL (7.0-18.7); Bilirubin, Total 0.3 mg/dL (0.2-1.2); Calc. Creatinine Clearance 0 mL/min (70-130); Calcium 10.6 mg/dL (7.8-10.44); Carbon Dioxide 15 mmol/L (22-29); Chloride 108 mmol/L (98-107); Estimated GFR 70; Globulin 4.7 g/dL (2.4-3.5); Glucose 129 mg/dL (70-105); Lipase 7 U/L (8-78); Potassium 3.9 mmol/L (3.5-5.1); Protein, Total 9.7 g/dL (6.0-8.3); Sodium 138 mmol/L (136-145)
[2022-11-09 20:52] LABS: Bacteria/HPF None Seen HPF (None Seen); Bilirubin Negative (Negative); Blood, Urine Trace (Negative); Clarity Clear (Clear); Glucose, Urine (Dipstick) Normal (Negative); Ketone, Urine Negative (Negative); Leukocyte Negative Leu/uL (Negative); Nitrite Negative (Negative); Protein, Urine (Dipstick) 10 mg/dL (Neg-Trace); Squamous Epithelial 0-3 HPF (0-3); Urobilinogen Normal mg/dL (Less than 2); WBC/HPF 0-3 HPF (0-3); pH, Urine 5.5 (5.0-9.0)
[2022-11-09 20:54] LABS: Specific Gravity, Urine 1.062 (1.002-1.036)
[2022-11-09 22:41] LABS: Lactic Acid 0.9 mmol/L (0.5-2.2)
== END 2022-11-10 00:33 | disposition home or self-care (01) ==
LOC: ERS 18:39
DX: K52.9 Noninfective gastroenteritis and colitis, unspecified (principal); D28.2 Benign neoplasm of uterine tubes and ligaments; I10 Essential (primary) hypertension
CPT/HCPCS: 36415; 74177; 76856; 80053; 81003; 81015; 83605; 83690; 84484; 85025; 87040; 93005; 93976; 96374; 96375; J2060; J2270; J2405

== ENCOUNTER 2023-07-26 23:41 | Emergency (ER) | payer OTHER ==
[2023-07-27] MEDS ORDERED: levETIRAcetam 500 MG/5 ML VIAL ONE ×2 (00:03→01:47)
[2023-07-27 00:20] LABS: Hematocrit 28.5 % (36.0-47.0); Hemoglobin 9.7 g/dL (12.0-16.0); Manual Diff?? YES; Mean Corpuscular Hemoglobin 27.5 pg (27.0-31.0); Mean Corpuscular Volume 80.7 fl (78.0-98.0); Mean Platelet Volume 10.1 fL (7.4-10.4); Platelet Count 423 10x3/uL (130-400); RBC Distribution Width 17.3 % (11.5-14.5); Red Blood Cell (RBC) Count 3.53 mill/uL (4.20-5.40); White Blood Cell (WBC) Count 6.2 10x3/uL (4.8-10.8)
[2023-07-27 00:41] LABS: Delete Auto Diff?? YES
[2023-07-27 00:45] LABS: ALT (SGPT) 7 U/L (8-55); AST (SGOT) 12 U/L (5-34); Albumin 3.7 g/dL (3.5-5.0); Alkaline Phosphatase 51 U/L (40-110); Anion Gap 13 mmol/L (10-20); BUN (Urea Nitrogen) 9 mg/dL (9.8-20.1); Bilirubin, Total Less than 0.2 mg/dL (0.2-1.2); Calc. Creatinine Clearance 0 mL/min (70-130); Calcium 9.3 mg/dL (7.8-10.44); Carbon Dioxide 22 mmol/L (22-29); Chloride 107 mmol/L (98-107); Estimated GFR 107; Globulin 3.4 g/dL (2.4-3.5); Glucose 108 mg/dL (70-105); Magnesium 1.6 mg/dL (1.6-2.6); Potassium 3.5 mmol/L (3.5-5.1); Protein, Total 7.1 g/dL (6.0-8.3); Sodium 138 mmol/L (136-145)
[2023-07-27 00:52] LABS: Troponin I Less than 0.010 ng/mL (< 0.028)
[2023-07-27 01:13] LABS: Anisocytosis MODERATE=16-30 cells HPF (0-5); CellaVision Operator ID LAB.JMM; Eosinophils 2 % (0-10); Hypochromia SLIGHT = 6-15 cells HPF (0-5); Large Platelets 15.8 % (0-5); Lymphocytes 37 % (21-51); Macrocytosis SLIGHT = 6-15 cells HPF (0-5); Monocytes 8 % (0-10); Neutrophil 54 % (42-75); Platelet Adequacy Comment Platelets Normal; Polychromasia SLIGHT = 2-3 cells HPF (0-2); Smudge Cells 10.9 %; Target Cells SLIGHT = 2-5 cells HPF (0-1); Total Cell Count 101
[2023-07-27] MEDS ORDERED: Acetaminophen 500 MG TAB ONE (02:26)
[2023-07-27 02:35] LABS: Bacteria/HPF None Seen HPF (None Seen); Bilirubin Negative (Negative); Blood, Urine Negative (Negative); CAUTI Indications for Culture Alt mental st,lethar; Clarity Clear (Clear); Glucose, Urine (Dipstick) Normal (Negative); Ketone, Urine Negative (Negative); Leukocyte Negative Leu/uL (Negative); Nitrite Negative (Negative); Protein, Urine (Dipstick) Negative (Neg-Trace); RBC/HPF 0-3 HPF (0-3); Specific Gravity, Urine 1.009 (1.002-1.036); Squamous Epithelial 0-3 HPF (0-3); Urobilinogen Normal mg/dL (Less than 2); WBC/HPF 0-3 HPF (0-3)
[2023-07-27 02:40] LABS: Urine Culture Reflex No No
== END 2023-07-27 03:25 | disposition home or self-care (01) ==
LOC: ERS 23:41
DX: R56.9 Unspecified convulsions (principal); I10 Essential (primary) hypertension; F17.210 Nicotine dependence, cigarettes, uncomplicated
CPT/HCPCS: 36415; 71045; 80053; 81001; 83605; 83735; 84484; 85025; 93005; J1953

== ENCOUNTER 2023-10-14 07:04 | Emergency (ER) | payer SELFPAY ==
[2023-10-14] MEDS ORDERED: Dicyclomine 20 MG/2 ML VIAL ONE (07:37)
[2023-10-14] MEDS ORDERED: Ondansetron PF 4 MG/2 ML Vial ONE (07:37)
[2023-10-14] MEDS ORDERED: Morphine 4 MG/ML VIAL ONE (07:37)
[2023-10-14] MEDS ORDERED: Pantoprazole 40 MG VIAL ONE (07:37)
[2023-10-14 07:47] LABS: Hematocrit 31.3 % (36.0-47.0); Hemoglobin 10.4 g/dL (12.0-16.0); Manual Diff?? YES; Mean Corpuscular HGB CONC 33.2 g/dL (32.0-36.0); Mean Corpuscular Hemoglobin 27.4 pg (27.0-31.0); Mean Corpuscular Volume 82.4 fl (78.0-98.0); Mean Platelet Volume 9.7 fL (7.4-10.4); Platelet Count 462 10x3/uL (130-400); RBC Distribution Width 17.1 % (11.5-14.5); White Blood Cell (WBC) Count 7.2 10x3/uL (4.8-10.8)
[2023-10-14 07:57] LABS: BHCG - Serum Negative (NEGATIVE); Delete Auto Diff?? YES; Pregs Control Background? CLEAR/WHITE (CLR/WHITE); Pregs Control Bar Appear? YES (CONTROL BAR)
[2023-10-14 08:06] LABS: ALT (SGPT) 8 U/L (8-55); AST (SGOT) 14 U/L (5-34); Albumin 3.7 g/dL (3.5-5.0); Alkaline Phosphatase 54 U/L (40-110); Anion Gap 13 mmol/L (10-20); BUN (Urea Nitrogen) 11 mg/dL (9.8-20.1); Bilirubin, Total Less than 0.2 mg/dL (0.2-1.2); Calc. Creatinine Clearance 0 mL/min (70-130); Calcium 8.7 mg/dL (7.8-10.44); Carbon Dioxide 17 mmol/L (22-29); Chloride 111 mmol/L (98-107); Estimated GFR 106; Globulin 3.6 g/dL (2.4-3.5); Glucose 102 mg/dL (70-105); Lipase 27 U/L (8-78); Protein, Total 7.3 g/dL (6.0-8.3); Sodium 137 mmol/L (136-145)
[2023-10-14 08:08] LABS: Troponin I Less than 0.010 ng/mL (< 0.028)
[2023-10-14 08:24] LABS: Anisocytosis SLIGHT = 6-15 cells HPF (0-5); CellaVision Operator ID lab.dlt; Eosinophils 3 % (0-10); Hypochromia SLIGHT = 6-15 cells HPF (0-5); Large Platelets 10.9 % (0-5); Lymphocytes 38 % (21-51); Monocytes 14 % (0-10); Neutrophil 44 % (42-75); Ovalocytes SLIGHT = 2-5 cells HPF (0-1); Platelet Adequacy Comment Platelets Increased; Poikilocytosis SLIGHT = 6-15 cells HPF (0-5); Polychromasia SLIGHT = 2-3 cells HPF (0-2); Reactive Lymphocytes 2 % (0-10); Total Cell Count 101
[2023-10-14 08:38] LABS: Bacteria/HPF None Seen HPF (None Seen); Bilirubin Negative (Negative); Blood, Urine Negative (Negative); CAUTI Indications for Culture Dysuria,urgency,freq; Clarity Clear (Clear); Glucose, Urine (Dipstick) Normal (Negative); Ketone, Urine Negative (Negative); Leukocyte Negative Leu/uL (Negative); Nitrite Negative (Negative); Protein, Urine (Dipstick) Negative (Neg-Trace); RBC/HPF 0-3 HPF (0-3); Specific Gravity, Urine 1.012 (1.002-1.036); Squamous Epithelial 0-3 HPF (0-3); Urobilinogen Normal mg/dL (Less than 2); WBC/HPF None Seen HPF (0-3); pH, Urine 6.5 (5.0-9.0)
[2023-10-14 08:39] LABS: Urine Culture Reflex No No
== END 2023-10-14 10:09 | disposition home or self-care (01) ==
LOC: ERS 07:04
DX: K29.00 Acute gastritis without bleeding (principal); R10.13 Epigastric pain; I10 Essential (primary) hypertension; F17.210 Nicotine dependence, cigarettes, uncomplicated; Z79.899 Other long term (current) drug therapy
CPT/HCPCS: 36415; 71045; 74177; 80053; 81001; 83690; 84484; 84703; 85025; 93005; 94760; 96372; 96374; 96375; C9113; J2270; J2405

== ENCOUNTER 2024-01-16 00:04 | Emergency (ER) | payer SELFPAY ==
[2024-01-16] MEDS ORDERED: LORazepam 2 MG/ML SYR.(CARPUJECT) ONE (00:21)
[2024-01-16 01:04] LABS: Hematocrit 30.2 % (36.0-47.0); Hemoglobin 10.3 g/dL (12.0-16.0); Mean Corpuscular HGB CONC 34.1 g/dL (32.0-36.0); Mean Corpuscular Hemoglobin 26.8 pg (27.0-31.0); Mean Corpuscular Volume 78.4 fL (78.0-98.0); Mean Platelet Volume 10.7 fL (7.4-10.4); Platelet Count 446 10x3/uL (130-400); Red Blood Cell (RBC) Count 3.85 mill/uL (4.20-5.40)
[2024-01-16] MEDS ORDERED: levETIRAcetam 500 MG (5 mL) VIAL ONE (01:07)
[2024-01-16] MEDS ORDERED: Dicyclomine 20 MG/2 ML VIAL ONE (01:07)
[2024-01-16 01:23] LABS: Lipase 34 U/L (8-78)
[2024-01-16 01:24] LABS: ALT (SGPT) Less than 5 U/L (8-55); AST (SGOT) 15 U/L (5-34); Albumin 3.3 g/dL (3.5-5.0); Alkaline Phosphatase 47 U/L (40-110); Anion Gap 15 mmol/L (10-20); BUN (Urea Nitrogen) 6 mg/dL (9.8-20.1); Bilirubin, Total 0.2 mg/dL (0.2-1.2); Calc. Creatinine Clearance 0 mL/min (70-130); Calcium 8.8 mg/dL (7.8-10.44); Carbon Dioxide 15 mmol/L (22-29); Chloride 115 mmol/L (98-107); Estimated GFR 103; Globulin 3.6 g/dL (2.4-3.5); Glucose 106 mg/dL (70-105); Potassium 3.7 mmol/L (3.5-5.1); Protein, Total 6.9 g/dL (6.0-8.3); Sodium 141 mmol/L (136-145)
[2024-01-16 01:25] LABS: Carbamazepine-Tegretol Less than 0.4 ug/mL (4.0-12.0)
[2024-01-16 01:25] LABS: Acetaminophen Less than 10 mcg/mL (10.0-30.0); Alcohol 124.2 mg/dL (Less than 10); Salicylate Less than 8.0 mg/dL (15.0-30.0)
[2024-01-16 01:37] LABS: Anisocytosis SLIGHT = 6-15 cells HPF (0-5); Eosinophils 1 % (0-10); Large Platelets 13.1 % (0-5); Lymphocytes 52 % (21-51); Microcytosis SLIGHT = 6-15 cells HPF (0-5); Monocytes 5 % (0-10); Neutrophil 41 % (42-75); Platelet Adequacy Comment Platelets Normal; Polychromasia SLIGHT = 2-3 cells HPF (0-2); Smudge Cells 9.1 %; Target Cells SLIGHT = 2-5 cells HPF (0-1)
[2024-01-16] MEDS ORDERED: Iopamidol-370 76% 500 ML MDV (1 ML CHARGE) ONE (10:48)
== END 2024-01-16 05:13 | disposition home or self-care (01) ==
LOC: ERS 00:04
DX: R56.9 Unspecified convulsions (principal); D64.9 Anemia, unspecified; D25.9 Leiomyoma of uterus, unspecified; I10 Essential (primary) hypertension; F17.210 Nicotine dependence, cigarettes, uncomplicated; Z55.6 Problems related to health literacy
CPT/HCPCS: 36415; 74177; 80053; 80156; 80307; 83605; 83690; 85025; 93005; 96372; 96374; J1953; J2060; Q9967

== ENCOUNTER 2024-01-17 11:42 | Emergency (ER) | payer SELFPAY ==
[2024-01-17] MEDS ORDERED: levETIRAcetam 500 MG (5 mL) VIAL SLOW IVP SCH (14:45)
[2024-01-17] MEDS ORDERED: levETIRAcetam 500 MG (5 mL) VIAL ONE (14:48)
== END 2024-01-17 15:20 | disposition home or self-care (01) ==
LOC: ERS 11:42
DX: R56.9 Unspecified convulsions (principal); I10 Essential (primary) hypertension; F17.210 Nicotine dependence, cigarettes, uncomplicated; Z79.899 Other long term (current) drug therapy; Z55.6 Problems related to health literacy
CPT/HCPCS: 96374; J1953

== ENCOUNTER 2024-06-23 17:54 | Emergency (ER) | payer SELFPAY ==
[2024-06-23 19:12] LABS: ALT (SGPT) 11 U/L (8-55); AST (SGOT) 18 U/L (5-34); Albumin 3.7 g/dL (3.5-5.0); Alkaline Phosphatase 63 U/L (40-110); Anion Gap 14 mmol/L (10-20); BUN (Urea Nitrogen) 9 mg/dL (9.8-20.1); Bilirubin, Total 0.5 mg/dL (0.2-1.2); Calc. Creatinine Clearance 0 mL/min (70-130); Calcium 9.3 mg/dL (7.8-10.44); Carbon Dioxide 19 mmol/L (22-29); Chloride 108 mmol/L (98-107); Estimated GFR 108; Globulin 4.1 g/dL (2.4-3.5); Glucose 87 mg/dL (70-105); Protein, Total 7.8 g/dL (6.0-8.3); Sodium 137 mmol/L (136-145)
[2024-06-23 19:25] LABS: #Basophils Less than 0.03 10x3/uL (0.0-0.2); %Basophils 0.3 % (0.0-1.0); %Eosinophils 1.9 % (0.0-10.0); %Lymphocytes 22.6 % (21.0-51.0); %Neutrophils 71.6 % (42.0-75.0); Hematocrit 38.6 % (36.0-47.0); Hemoglobin 13.4 g/dL (12.0-16.0); Mean Corpuscular HGB CONC 34.7 g/dL (32.0-36.0); Mean Corpuscular Hemoglobin 28.6 pg (27.0-31.0); Mean Corpuscular Volume 82.5 fL (78.0-98.0); Mean Platelet Volume 11.3 fL (7.4-10.4); Platelet Count 400 10x3/uL (130-400); Red Blood Cell (RBC) Count 4.68 mill/uL (4.20-5.40)
[2024-06-23] MEDS ORDERED: levETIRAcetam 500 MG (5 mL) VIAL ONE (21:10)
== END 2024-06-23 22:24 | disposition home or self-care (01) ==
LOC: ERS 17:54
DX: R56.9 Unspecified convulsions (principal); I10 Essential (primary) hypertension; F17.210 Nicotine dependence, cigarettes, uncomplicated
CPT/HCPCS: 70450; 71045; 80053; 80164; 85025; 96365; J1953

== ENCOUNTER 2024-07-06 07:28 | Emergency (ER) | payer SELFPAY ==
[2024-07-06] MEDS ORDERED: Ipratropium/Albuterol 3 ML NEB ONE ×2 (08:35→08:54)
[2024-07-06] MEDS ORDERED: methylPREDNISolone Sod Succ/PF 125 MG/2 ML VIAL ONE (08:54)
[2024-07-06 09:24] LABS: Hematocrit 35.5 % (36.0-47.0); Hemoglobin 12.3 g/dL (12.0-16.0); Mean Corpuscular HGB CONC 34.6 g/dL (32.0-36.0); Mean Corpuscular Hemoglobin 28.3 pg (27.0-31.0); Mean Corpuscular Volume 81.8 fL (78.0-98.0); Mean Platelet Volume 10.1 fL (7.4-10.4); Platelet Count 413 10x3/uL (130-400); RBC Distribution Width 15.9 % (11.5-14.5); Red Blood Cell (RBC) Count 4.34 mill/uL (4.20-5.40)
[2024-07-06 09:29] LABS: BHCG - Serum Negative (NEGATIVE); Pregs Control Background? CLEAR/WHITE (CLR/WHITE); Pregs Control Bar Appear? YES (CONTROL BAR)
[2024-07-06 09:40] LABS: ALT (SGPT) 10 U/L (8-55); AST (SGOT) 14 U/L (5-34); Albumin 3.7 g/dL (3.5-5.0); Alkaline Phosphatase 56 U/L (40-110); Anion Gap 12 mmol/L (10-20); BUN (Urea Nitrogen) 5 mg/dL (9.8-20.1); Bilirubin, Total 0.4 mg/dL (0.2-1.2); Calc. Creatinine Clearance 0 mL/min (70-130); Calcium 9.3 mg/dL (7.8-10.44); Carbon Dioxide 18 mmol/L (22-29); Chloride 108 mmol/L (98-107); Estimated GFR 106; Globulin 3.8 g/dL (2.4-3.5); Glucose 100 mg/dL (70-105); Lipase 10 U/L (8-78); Potassium 3.7 mmol/L (3.5-5.1); Protein, Total 7.5 g/dL (6.0-8.3); Sodium 134 mmol/L (136-145)
[2024-07-06 09:43] LABS: Troponin I 0.012 ng/mL (< 0.028)
[2024-07-06 10:02] LABS: Anisocytosis SLIGHT = 6-15 cells HPF (0-5); Band 1 % (5-11); Eosinophils 6 % (0-10); Lymphocytes 24 % (21-51); Monocytes 7 % (0-10); Neutrophil 62 % (42-75); Platelet Adequacy Comment Platelets Normal; Poikilocytosis SLIGHT = 6-15 cells HPF (0-5); Polychromasia SLIGHT = 2-3 cells HPF (0-2); Target Cells SLIGHT = 2-5 cells HPF (0-1)
== END 2024-07-06 10:27 | disposition home or self-care (01) ==
LOC: ERS 07:28
DX: J45.901 Unspecified asthma with (acute) exacerbation (principal); I10 Essential (primary) hypertension; F17.210 Nicotine dependence, cigarettes, uncomplicated
CPT/HCPCS: 36415; 71045; 80053; 83690; 83880; 84484; 84703; 85025; 87428; 93005; 96374; J2919; J7620

== ENCOUNTER → 2024-07-10 | Emergency (ER) | payer SELFPAY ==
[~2024-07-10] MED LIST changes: -Iopamidol-370 76% 500 ML MDV (1 ML CHARGE) ONE; +Ipratropium/Albuterol 3 ML NEB ONE; +Magnesium 2 GM/50 ML BAG (IN WATER) ONE; +methylPREDNISolone Sod Succ/PF 125 MG/2 ML VIAL ONE
[2024-07-10 22:27] LABS: Hemoglobin 12.5 g/dL (12.0-16.0); Mean Corpuscular HGB CONC 33.8 g/dL (32.0-36.0); Mean Corpuscular Hemoglobin 28.2 pg (27.0-31.0); Mean Corpuscular Volume 83.3 fL (78.0-98.0); Mean Platelet Volume 10.4 fL (7.4-10.4); Platelet Count 421 10x3/uL (130-400); RBC Distribution Width 15.4 % (11.5-14.5); Red Blood Cell (RBC) Count 4.44 mill/uL (4.20-5.40)
[2024-07-10 22:48] LABS: Anisocytosis SLIGHT = 6-15 cells HPF (0-5); Burr Cells SLIGHT = 2-5 cells HPF (0-1); Large Platelets 4.9 % (0-5); Lymphocytes 29 % (21-51); Monocytes 4 % (0-10); Neutrophil 64 % (42-75); Platelet Adequacy Comment Platelets Increased; Poikilocytosis SLIGHT = 6-15 cells HPF (0-5); Polychromasia SLIGHT = 2-3 cells HPF (0-2); Reactive Lymphocytes 3 % (0-10); Smudge Cells 6.9 %; Target Cells SLIGHT = 2-5 cells HPF (0-1)
[2024-07-10 22:51] LABS: ALT (SGPT) 22 U/L (8-55); AST (SGOT) 24 U/L (5-34); Albumin 3.7 g/dL (3.5-5.0); Alkaline Phosphatase 58 U/L (40-110); Anion Gap 16 mmol/L (10-20); BUN (Urea Nitrogen) 12 mg/dL (9.8-20.1); Bilirubin, Total 0.2 mg/dL (0.2-1.2); CK (CPK) 61 U/L (29-168); Calc. Creatinine Clearance 0 mL/min (70-130); Calcium 9.2 mg/dL (7.8-10.44); Carbon Dioxide 17 mmol/L (22-29); Chloride 106 mmol/L (98-107); Estimated GFR 85; Globulin 4.3 g/dL (2.4-3.5); Glucose 113 mg/dL (70-105); Potassium 4.4 mmol/L (3.5-5.1); Sodium 135 mmol/L (136-145)
== END ==
LOC: ERS 21:56
DX: J45.901 Unspecified asthma with (acute) exacerbation (principal); I10 Essential (primary) hypertension; F17.210 Nicotine dependence, cigarettes, uncomplicated
CPT/HCPCS: 36415; 71045; 80053; 82550; 83605; 83880; 85025; 87040; 93005; 94760; 96374; 96375; J2919; J3475; J7620

== ENCOUNTER 2025-06-07 12:05 | Emergency (ER) | payer SELFPAY ==
[2025-06-07 13:45] LABS: #Basophils Less than 0.03 10x3/uL (0.0-0.2); #Eosinophils 0.11 10x3/uL (0.0-0.7); #Monocytes 0.56 10x3/uL (0.11-0.59); #Neutrophils 4.78 10x3/uL (1.40-6.50); %Basophils 0.3 % (0.0-1.0); %Eosinophils 1.4 % (0.0-10.0); %Lymphocytes 30.1 % (21.0-51.0); %Monocytes 7.1 % (0.0-10.0); %Neutrophils 60.7 % (42.0-75.0); Hematocrit 36.4 % (36.0-47.0); Hemoglobin 12.1 g/dL (12.0-16.0); Mean Corpuscular Hemoglobin 27.9 pg (27.0-31.0); Mean Corpuscular Volume 83.9 fL (78.0-98.0); Platelet Count 344 10x3/uL (130-400); Red Blood Cell (RBC) Count 4.34 mill/uL (4.20-5.40); White Blood Cell (WBC) Count 7.87 10x3/uL (4.8-10.8)
[2025-06-07 14:08] LABS: ALT (SGPT) 11 U/L (Less than 34); AST (SGOT) 22 U/L (11-34); Albumin 4.0 g/dL (3.1-4.5); Alkaline Phosphatase 57 U/L (40-110); Anion Gap 14 mmol/L (10-20); BUN (Urea Nitrogen) 16 mg/dL (9.8-20.1); Bilirubin, Total 0.2 mg/dL (0.3-1.2); Calc. Creatinine Clearance 0 mL/min (70-130); Calcium 9.8 mg/dL (7.8-10.44); Carbon Dioxide 19 mmol/L (22-29); Chloride 109 mmol/L (98-107); Globulin 3.8 g/dL (2.4-3.5); Glucose 83 mg/dL (70-105); Potassium 4.0 mmol/L (3.5-5.1); Sodium 138 mmol/L (136-145)
[2025-06-07 14:09] LABS: Acetaminophen 27 mcg/mL (Less than 10); Salicylate Less than 8.0 mg/dL (Less than 8.0)
== END 2025-06-07 14:50 | disposition home or self-care (01) ==
LOC: ERS 12:05
DX: R56.9 Unspecified convulsions (principal); K08.89 Other specified disorders of teeth and supporting structures; I10 Essential (primary) hypertension; F17.210 Nicotine dependence, cigarettes, uncomplicated
CPT/HCPCS: 70450; 80053; 80307; 84146; 85025; 93005; 95813